=== PATIENT | male | born 1935 | race Caucasian/White ===

== ENCOUNTER 2018-09-17 12:04 | Emergency (ER) | payer OTHER, SELFPAY ==
[2018-09-17 12:08] VITALS: BP 144/74; PULSE 98; RESP 18; TEMP 36.4; O2SAT 98
--- NOTE | 2018-09-17 12:21 | W.ED.GENAD ---
Discharge Plan Disposition Patient Disposition: HOME Condition: Stable Discharge Details Chief Complaint: Abd Prob Clinical Impression: Acute pancreatitis ED Provider: Jermaine Goins Home Meds and New Rx's Prescriptions: New oxycodone 5 mg tablet 5 mg PO Q6H PRN (Reason: pain) Qty: 12 RF: 0 ondansetron 4 mg tablet,disintegrating 4 mg PO Q8H PRN (Reason: nausea and vomiting) Qty: 30 RF: 0 Discharge Instructions Instructions: Pancreatitis (ED) Additional Instructions: follow up with your primary care provider within 1-2 weeks you can take 1000mg tylenol every 6 hours if you have severe worsening pain, persistent vomit or feel more ill return to the emergency department for reevaluation Medical Decision Making 83 yo male with hx of DM on insulin, htn, hld, who lives in [facility] and was driving back from [place] and stopped here due to abdominal pain. He states he started to have right sided flank pain last night but resolved with tylenol. It returned again today despite tylenol has had incresaing pain so stopped here for an eval. No vomit, fevers, chest pain or pressure. Has right flank area pain and some ruq tenderness. No davila's sign. Given his pain and location will obtain lab work and imaging to evaluate for possible kidney stone and less likely pneumoperitoneum. No chest pain or pressure so doubt acs pt's labs show mild elevation of lfts and lipase over 3000, ct without emergent findings per , no evidence of cholecystitis. Has no ruq pain and no davila's sign so doubt cholecystitis. He is feeling much better and tolerating PO. I recommended admission given his pain and pancreatitis but since he feels better he wants to be discharged and f/u with his pcp in [facility], and go to a local ED where he visits if he worsens. He understands the importance of going straight to the hospital if he worsens in anyway Differential Diagnosis kidney stone, pneumoperitoneum Imaging Data Radiologic Study: Attestation: I personally reviewed and interpreted this imaging study as follows: Imaging: CT Scan Radiologist's impression: no acute findings, no pneumoperitoneum, does have distended gallbladder but no stones or other findings to suggest choleycstitis Lab Data Lab results reviewed: Yes I reviewed the patient's lab results. ECG Data Attestation: I personally reviewed and interpreted this ECG (s) as follows: Prior ECG tracings: not available for review Interpretation: sinus rhythm, rate of 98, pr 202, qtc 454 HPI General Mode of arrival: ambulatory. Date/Time Provider Initiated Documentation: 09/17/18 12:10. Limitations to Documentation: no limitations. Information obtained by: patient. History of Present Illness 83 year old M presents to the emergency department with the chief complaint of abdominal pain, described as severe, Quality is described as stabbing, Patient started experiencing this day(s) (1) and it has been constant. No relieving factors improve symptom(s), No exacerbating factors reported . Patient did receive the following treatments prior to arrival, none Related Data Home Medications Medication Instructions Recorded Confirmed ondansetron 4 mg PO Q8H PRN #30 tab 09/17/18 oxycodone 5 mg PO Q6H PRN #12 tab 09/17/18 Previous Rx's Medication Instructions Recorded ondansetron 4 mg PO Q8H PRN #30 tab 09/17/18 oxycodone 5 mg PO Q6H PRN #12 tab 09/17/18 General Stated Complaint: Abd Prob MIR: 3 Review of Systems Review of Systems All systems reviewed & are unremarkable except as noted in HPI and below Constitutional Denies chills, Denies fever(s) and Denies weakness Cardiovascular Denies chest pain and Denies dyspnea Respiratory Denies cough and Denies dyspnea Gastrointestinal Denies nausea and Denies vomiting Integumentary/Breasts Denies rash Neurologic Denies weakness PFSH Social History Alcohol Intake: current Alcohol Intake frequency: holidays/special occasions only Substance use type: does not use Do you feel safe at home: Yes Do you feel safe in your relationship?: Yes Exam Const General: other (appears in pain) Orientation: alert HENMT Head: normal to inspection Ears: external ears normal General nose exam: external nose normal Mouth: moist mucous membranes Eyes General: appearance normal, both eyes and all related structures Neck Neck: normal visual inspection Resp Effort & Inspection: normal respiratory effort and able to speak in complete sentences Cardio Rate: regular rate GI Inspection: no abdominal wall ecchymosis Skin General skin exam: no rashes or lesions noted Neuro General: alert and oriented x3 Extrem General: normal to inspection Psych Mental Status: mental status grossly normal Course Vital Signs Temperature 36.4 C L 09/17/18 12:08 Pulse 98 H 09/17/18 12:08 Respiratory Rate 18 09/17/18 12:08 Blood Pressure 144/74 H 09/17/18 12:08 Pulse Oximetry 98 09/17/18 12:08 Temperature 36.4 C L 09/17/18 12:08 Temperature Source Temporal Artery Scan 09/17/18 12:08 Pulse 98 H 09/17/18 12:08 Respiratory Rate 18 09/17/18 12:08 Blood Pressure 144/74 H 09/17/18 12:08 Pulse Oximetry 98 09/17/18 12:08 Oxygen Delivery Method Room Air 09/17/18 12:08 Oxygen Flow Rate 0 09/17/18 12:08
[2018-09-17 12:45] LABS: PTT Activated 22.9 sec (21.0-31.4); Prothrombin Time 10.3 sec (9.3-11.0)
[2018-09-17] MEDS: fentaNYL 100 MCG/2 ML VIAL 80 MCG IVP (12:51)
[2018-09-17 12:55] LABS: ALT 141 U/L (12-78); AST 165 U/L (15-37); Albumin 3.8 g/dL (3.4-5.0); Alkaline Phosphatase 154 U/L (46-116); Anion Gap 6.4 mmol/L (3-11); BUN 24 mg/dL (7-18); Bilirubin, Total 1.3 mg/dL (0.2-1.0); CO2 28.6 mmol/L (21.0-32.0); CREATININE 1.41 mg/dL (0.70-1.30); Calcium 9.7 mg/dL (8.5-10.1); Chloride 104 mmol/L (98-107); Glucose 204 mg/dL (70-100); Magnesium 1.9 mg/dL (1.8-2.4); Potassium 3.8 mmol/L (3.5-5.1); Sodium 139 mmol/L (136-145)
--- NOTE | 2018-09-17 13:00 | DI.CT_ITS ---
SYMPTOMS/DIAGNOSIS: RIGHT FLANK PAIN RENAL COLIC CT: The renal colic examination was carried out according to the usual protocol without contrast enhancement. Linear scarring and/or atelectasis is noted in the lung bases. The liver is unremarkable. The gallbladder is distended and there is some apparent wall prominence. There is perhaps a trace of fluid adjacent to the gallbladder with hazy attenuation of the fat in the region of the diane hepatis. No calcified stones are seen. There is no evidence of ductal dilatation. There is a 3-4 mm calcification in the anticipated region of the ampulla of Vater. The pancreas is normal. The spleen is normal. The adrenals are normal. There is nonobstructing bilateral nephrolithiasis with a 2 mm calculus in the lower pole of the right kidney and a 4 mm calculus in a lower pole calyx. There is no evidence of hydronephrosis. There is no ureteral calculus. Note is also made of a nonobstructing left renal calculus. There is no evidence of left hydronephrosis. Bilateral simple cysts are seen. There is bilateral perinephric stranding, which is nonspecific. There is no evidence of intestinal obstruction. The stomach is dilated and contains fluid. There is no evidence of diverticulitis. The appendix is normal. There is no evidence of free air or free fluid in the intraperitoneal space. There is no evidence of an aortic aneurysm, but diffuse calcification is noted in the abdominal aorta. There is no lymphadenopathy. The bladder appears intact. The reproductive organs as visualized appear intact. No acute bony abnormality is seen. A small fat-containing umbilical hernia is demonstrated. SUMMARY: There are nonobstructing bilateral intrarenal calculi with no evidence of hydronephrosis. The gallbladder is distended and there is some apparent wall thickening. No gallstones are identified in the gallbladder and there is no evidence of ductal dilatation; however, a small calcification is noted in the region of the ampulla and may be small stone. These findings are to be correlated with the patient's liver function tests and further evaluation with gallbladder ultrasound is recommended.
[2018-09-17 13:05] LABS: Lipase 3030 U/L (73-393)
[2018-09-17 13:06] LABS: Troponin I < 0.05 ng/mL (0.00-0.06)
[2018-09-17 13:08] VITALS: BP 155/68; PULSE 80; RESP 16; TEMP 36; O2SAT 96
[2018-09-17] MEDS: Ondansetron 4 MG/2 ML VIAL (13:25)
[2018-09-17 13:28] LABS: Triglyceride 110 mg/dL (30-150)
[2018-09-17 13:37] LABS: Abs Immature Grans 0.01 k/cumm (0.0-0.09); Absolute Basophil Count 0.03 k/cumm (0.0-0.2); Absolute Eosinophil Count 0.16 k/cumm (0.0-0.7); Absolute Lymphocyte Count 1.32 k/cumm (1.2-3.4); Absolute Monocyte Count 0.56 k/cumm (0.11-0.7); Absolute Neutrophil Count 5.82 k/cumm (1.2-6.7); Basophils % 0.4; HCT 39.4 % (40.0-50.0); HGB 13.4 g/dL (13.5-17.5); Immature Grans % 0.1; Lymphocytes % 16.7; Mean Corpuscular Hemoglobin 29.8 pg (27.0-33.0); Mean Corpuscular Volume 87.6 fL (80-95); Mean Platelet Volume 11.2 fL (8.0-11.0); Monocytes % 7.1; Neutrophils % 73.7; Platelet Count 224 x1000/uL (130-400); RBC Distribution Width 13.8 % (11.8-14.1)
[2018-09-17 13:43] LABS: ETHANOL BLOOD < 3.0 mg/dL (<3)
--- NOTE | 2018-09-17 14:00 | DI.VRAD_ITS ---
EXAM: CT Abdomen and Pelvis Without Contrast EXAM DATE/TIME: 09/17/2018 1:01 PM CLINICAL HISTORY: 83 years old, male; Abdominal pain; Flank; Right TECHNIQUE: Imaging protocol: Axial computed tomography images of the abdomen and pelvis without contrast. Coronal and sagittal reformatted images were created and reviewed. COMPARISON: No relevant prior studies available. FINDINGS: Limitations: Absence of IV contrast decreases soft tissue differentiation and sensitivity for detecting pathology. Lungs: Linear scarring or atelectasis is present bilaterally. Liver: The liver is unremarkable with no focal lesions. Gallbladder and bile ducts: The gallbladder is distended and demonstrates wall prominence. There is trace fluid adjacent to the gallbladder with hazy attenuation of the fat in the diane hepatis. No calcified gallstones.There is no definite evidence of biliary ductal dilation. There is a 3-4 mm calculus in the anticipated region of the ampulla (54/2, 51/4). Pancreas: Normal. No ductal dilation. Spleen: Normal. No splenomegaly. Adrenals: Normal. No mass. Kidneys and ureters: There is a nonobstructing 2 mm calculus in a right lower pole calyx. There is an additional 4 mm calculus in a lower pole calyx. No evidence of right hydronephrosis. No right ureteral calculus. There are punctate nonobstructing left intrarenal calculi. No evidence of left hydronephrosis or ureteral calculi. There are bilateral simple renal cysts.There is bilateral perinephric stranding which is nonspecific. Stomach and bowel: There is no evidence of intestinal obstruction. There is no evidence of diverticulitis. Appendix: The appendix is normal in appearance and there are no periappendiceal inflammatory changes. Intraperitoneal space: Normal. No free air. No significant fluid collection. Vasculature: The aorta is normal in caliber.The vasculature demonstrates diffuse moderate atherosclerotic calcification. Lymph nodes: Normal. No enlarged lymph nodes. Bladder: Unremarkable as visualized. Reproductive: Unremarkable as visualized. Bones/joints: There is marked diffuse bone demineralization.No acute osseous abnormality is identified.There is no evidence of acute fracture. Soft tissues: There is a small uncomplicated fat-containing umbilical hernia. IMPRESSION: 1. There are bilateral nonobstructing intrarenal calculi.There is no evidence of hydronephrosis. 2. Abnormal appearance of the gallbladder which could represent acute cholecystitis. There is a 3-4 mm calculus in the anticipated region of the ampulla with no significant biliary ductal dilatation at this time. Correlate with bilirubin levels. If clinically warranted, a gallbladder ultrasound or DISIDA scan is recommended for further assessment. Remainder of non-emergent findings as described above. Dictated and Authenticated by: Catrina Post MD. Ordering:MARY Dean MD
[2018-09-17 14:16] VITALS: BP 162/80; RESP 75; O2SAT 95
== END 2018-09-17 14:19 | disposition home or self-care (01) ==
PROVIDERS: Emergency Provider Emergency Medicine
DX: K85.90 Acute pancreatitis without necrosis or infection, unspecified (principal); R10.11 Right upper quadrant pain; R74.8 Abnormal levels of other serum enzymes; K82.8 Other specified diseases of gallbladder; E11.9 Type 2 diabetes mellitus without complications; Z79.4 Long term (current) use of insulin; I10 Essential (primary) hypertension
CPT/HCPCS: 36415; 80053; 83690; 93005; 96374; 96375; 99285; 74176; 80320; 83735; 84478; 84484; 85025; 85610; 85730; 93010; 99284; J2405; J3010; J3490